=== PATIENT | male | born 1995 | race Caucasian/White ===

== ENCOUNTER → 2021-05-16 | Outpatient (CLI) | payer OTHER ==
--- NOTE | 2021-05-16 11:21 | PFTRPT ---
Site: [facility], [address] [place] [address], [id number] ID: [id number] Name: BASHIR DODSON Visit Date: 05/16/2021 Second ID: [id number] Referring Doctor: Blaise Hudson D.O. Reviewing Doctor: Carlos Gonzalez MD Buggy Driver: Rosa MEJIA RRT Age: 25 : 1995 Sex: Male Race: Height: 73.00 Inches Weight: 280.00 Lbs BSA: 2.48 Order IDs: [id number] Requested Test(s): <RESP-PFT.PFT B/A> Diagnosis: SOB test meet the ATS standards for acceptability and repeatability. Pt was given four puffs of albuterol for post bronchodilator. Review Status: Not Reviewed Pre-Bronch Post-Bronch Pred Actual %Pred Actual %Chng SPIROMETRY FVC (L) 6.08 5.84 96 5.84 FEV1 (L) 4.99 4.47 89 4.79 7 FEV1/FVC (%) 83 77 92 82 7 FEF 25% (L/sec) 9.78 7.66 78 9.05 18 FEF 50% (L/sec) 6.55 4.90 74 6.21 26 FEF 75% (L/sec) 2.55 1.62 63 2.26 39 FEF 25-75% (L/sec) 5.06 3.86 76 4.94 28 FEF Max (L/sec) 10.87 8.85 81 9.11 3 FIVC (L) 5.48 5.52 FIF 50% (L/sec) 5.66 7.09 125 6.64 -6 FIF Max (L/sec) 7.17 6.70 -6 MVV (L/min) 196 116 59 Expiratory Time (sec) 7.56 7.15 -5 Back Extrap Vol (L) 0.17 0.18 2 Time To FEFmax (sec) 0.145 0.149 2 LUNG VOLUMES TGV (L) 3.68 2.91 79 DIFFUSION DLCOunc (ml/min/mmHg) 37.93 34.97 92 DL/VA (ml/min/mmHg/L) 5.07 5.21 102 VA (L) 7.48 6.71 89 BHT (sec) 9.71 IVC (L) 5.54 TLC (SB) (L) 6.86 AIRWAYS RESISTANCE Raw (cmH2O/L/s) 1.45 1.46 101 Gaw (L/s/cmH2O) 1.03 0.69 66 sRaw (cmH2O*s) 4.76 4.80 100 sGaw (1/cmH2O*s) 0.20 0.21 104
== END ==
LOC: M CARPUL 07:43
PROVIDERS: ATTEND Surgery
DX: R06.02 Shortness of breath (principal)

== ENCOUNTER → 2021-07-08 | Outpatient (CLI) | payer OTHER ==
[~2021-07-08] MED LIST: METHACHOLINE KIT (J7674) INH ONE
== END ==
LOC: M CARPUL 14:37
PROVIDERS: ATTEND Physician Assistant
DX: R06.00 Dyspnea, unspecified (principal)
CPT/HCPCS: 94070; J7674